=== PATIENT | female | born 1940 | race Caucasian/White ===

== ENCOUNTER 2019-11-05 10:32 | Outpatient (CLI) | payer MEDICARE, OTHER, SELFPAY ==
--- NOTE | 2019-11-05 10:44 | XR_ITS ---
WS: [id number] PROCEDURE: XR chest 2V* [id number] CLINICAL INFORMATION: CHEST PAIN COMPARISON: May 26, 2017. FINDINGS: Heart: Cardiomegaly. Lungs: Advanced chronic emphysematous changes. Patchy infiltrates within the left midlung are new fro m previous. Correlation for pneumonia. No significant pleural fluid. Hyperinflation with advanced chr onic emphysematous changes. 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 Bones: Lumbar scoliosis convex right. Mild thoracic kyphosis. XR/XR chest 2V* [id number] IMPRESSION: 1. Patchy infiltrate within the left midlung with subsegmental atelectasis in the lingula. Recommend correlation for pneumonia. 2. Advanced chronic emphysematous changes with hyperinflation. 3. No significant pleural fluid. 4. Thoracal lumbar scoliosis convex right.
== END 2019-11-05 10:33 | disposition home or self-care (01) ==
LOC: RADWPI 10:39
PROVIDERS: Family Provider Family Medicine; PCP Family Medicine; Visit Provider Family Medicine
DX: R07.9 Chest pain, unspecified (principal); J98.11 Atelectasis; J43.8 Other emphysema; M41.85 Other forms of scoliosis, thoracolumbar region; R91.8 Other nonspecific abnormal finding of lung field
CPT/HCPCS: 71046

== ENCOUNTER → 2021-07-04 15:46 | Outpatient (BNVA) | payer MEDICARE, OTHER, SELFPAY | PROVIDERS: PCP Family Medicine; Visit Provider Podiatrist Foot & Ankle Surgery | DX: S92.352D Displaced fracture of fifth metatarsal bone, left foot, subsequent encounter for fracture with routine healing (principal); W01.0XXD Fall on same level from slipping, tripping and stumbling without subsequent striking against object, subsequent encounter | CPT/HCPCS: 73630 ==

== ENCOUNTER → 2021-08-21 10:39 | Outpatient (BNVA) | payer MEDICARE, OTHER, SELFPAY | PROVIDERS: PCP Family Medicine; Visit Provider Podiatrist Foot & Ankle Surgery | DX: S92.352D Displaced fracture of fifth metatarsal bone, left foot, subsequent encounter for fracture with routine healing (principal); W10.1XXD Fall (on)(from) sidewalk curb, subsequent encounter; Y92.512 Supermarket, store or market as the place of occurrence of the external cause | CPT/HCPCS: 73630 ==

== ENCOUNTER → 2021-09-27 09:47 | Outpatient (BNVA) | payer MEDICARE, OTHER, SELFPAY | PROVIDERS: PCP Family Medicine; Visit Provider Podiatrist Foot & Ankle Surgery | DX: S92.352D Displaced fracture of fifth metatarsal bone, left foot, subsequent encounter for fracture with routine healing (principal); X58.XXXD Exposure to other specified factors, subsequent encounter; M25.572 Pain in left ankle and joints of left foot | CPT/HCPCS: 73610; 73630; 99213; 99214 ==